=== PATIENT | female | born 1950 | race Caucasian/White ===

== ENCOUNTER 2025-02-27 13:49 | Outpatient (RCR) | payer MEDICARE, SELFPAY | END 2025-06-27 23:59 | disposition home or self-care (01) | PROVIDERS: PCP Family Medicine; Visit Provider Family Medicine | DX: M72.0 Palmar fascial fibromatosis [Dupuytren] (principal); Z51.89 Encounter for other specified aftercare | CPT/HCPCS: 97110; 97165; X5282 ==